=== PATIENT | female | born 1965 | race Caucasian/White ===

== ENCOUNTER 2017-11-14 12:39 | Emergency (ER) | payer BC ==
[~2017-11-14] VITALS: Ht 152.4 cm; Wt 54.5 kg
[2017-11-14 12:40] VITALS: BP 151/80; PULSE 100; RESP 20; TEMP 98.7; O2SAT 95
--- NOTE | 2017-11-14 15:18 | RADRPT ---
EXAM DATE/TIME: 11/14/2017 14:59 [facility] COMPARISON: No previous studies available for comparison. INDICATIONS : Pain without acute trauma. MEDICAL HISTORY : Prior dislocation. SURGICAL HISTORY : Hip pinning, left. ENCOUNTER: Initial ACUITY: 2 days PAIN SCORE: 5/10 LOCATION: Left hip. FINDINGS: 2 views of the left hip reveal 2 femoral neck screws traversing a prior subcapital femoral neck fract ure. Alignment noted. The screws are contained within the cortical confines of the femoral head. Mild osteoarthritis involving the hip joint. No acute fracture or dislocation. Soft tissues are unremarka ble. CONCLUSION: Old trauma with femoral neck screws. No acute abnormality observed. Luis Daniel Whitney Jr., MD on November 14, 2017 at 15:15 Board Certified Radiologist. This report was verified electronically.
[2017-11-14] MEDS ORDERED: HYDR-3516 PO (17:41)
--- NOTE | 2017-11-14 17:41 | PD ---
HPI Chief Complaint: Pain: Acute or Chronic Time Seen by Provider: 17:30 Travel History International Travel<30 days: No Contact w/Intl Traveler<30days: No Traveled to known affect area: No History of Present Illness HPI 52-year-old female with history of left hip ORIF secondary to a dislocation in 1975 in [place], here for evaluation of left hip pain. Patient reports that she began experiencing some discomfort in her left hip last night and it seemed to worsen today. She has not had any recent injuries. Pain is constant, moderate, worse with movement and ambulation, improved with rest. No fevers or chills. No history of DVT or PE. No chest pain or dyspnea. PFSH Social History Tobacco Use: Yes Allergies-Medications (Allergen,Severity, Reaction): Coded Allergies: No Known Allergies (Unverified , 11/14/17) Reported Meds & Prescriptions Reported Meds & Active Scripts Active Hydrocodone-Acetaminophen 5-325 mg Tab 1 Tab PO Q6H PRN Review of Systems Except as stated in HPI: all other systems reviewed are Neg Physical Exam Narrative GENERAL: Well-developed, well-nourished, comfortable, no apparent distress. Ambulated from triage to exam room without difficulty and without assistance. SKIN: Focused skin assessment warm/dry. No rash. HEAD: Atraumatic. Normocephalic. EYES: Pupils equal and round. No scleral icterus. No injection or drainage. ENT: No nasal bleeding or discharge. Mucous membranes pink and moist. NECK: Trachea midline. No JVD. CARDIOVASCULAR: Regular rate and rhythm. No murmur appreciated. RESPIRATORY: No accessory muscle use. Clear to auscultation. Breath sounds equal bilaterally. MUSCULOSKELETAL: No obvious deformities. No clubbing. No cyanosis. No edema. Left lateral hip with mild tenderness without deformity, without warmth and erythema, with normal range of motion. All compartments in the left lower chest , near supple. No midline vertebral step-off or tenderness. Left lower extremity is neurovascularly intact. NEUROLOGICAL: Awake and alert. No obvious cranial nerve deficits. Motor grossly within normal limits. Normal speech. PSYCHIATRIC: Appropriate mood and affect; insight and judgment normal. Data Data Last Documented VS Vital Signs Date Time Temp Pulse Resp B/P (MAP) Pulse Ox O2 Delivery O2 Flow Rate FiO2 11/14/17 17:50 95 18 145/75 (98) 97 Room Air 11/14/17 12:40 98.7 Orders Orders Hip, Uni(Ap&Lat) Wo Ap Pelvis (11/14/17 ) Acetamin-Hydrocod 325-5 Mg ([place] 5-325 (11/14/17 17:45) Ed Discharge Order (11/14/17 17:41) MDM Medical Decision Making Medical Screen Exam Complete: Yes Emergency Medical Condition: Yes Differential Diagnosis Acute on chronic left hip pain, left hip fracture, dislocation Narrative Course This is a 52-year-old female who had ORIF of the left hip in 1975 for left hip dislocation. She has normal range of motion in the left hip and there are no signs of infection. Left hip x-ray shows old injury with femoral necks is intact and in place, no acute trauma. Patient was made aware of this x-ray finding. At this point she is stable for discharge home with outpatient follow- up with an orthopedist this week. She was advised on when to return to the emergency department. She verbalizes understanding and agreement with plan. Diagnosis Primary Impression: Left hip pain Referrals: Rafiq Avila MD 3 days Orthopedist Primary Care Physician 3 days Additional Instructions: Follow-up with orthopedist Dr. Avila orthopedist of your choice this week. Follow-up with a primary care physician this week. Return to the emergency department for worsening symptoms or any other concerns. Scripts Hydrocodone-Acetaminophen (Hydrocodone-Acetaminophen) 5-325 mg Tab 1 TAB PO Q6H Y for PAIN, #12 TAB 0 Refills Prov: Al Lake MD 11/14/17 Disposition: 01 DISCHARGE HOME Condition: Stable Al Lake MD Nov 14, 2017 17:41
[2017-11-14] MEDS ORDERED: ACETAMINOPHEN/HYDROcodone 325 MG/5 MG TAB PO ONE (17:45)
[2017-11-14 17:50] VITALS: BP 145/75; PULSE 95; RESP 18; O2SAT 97
== END 2017-11-15 01:49 | disposition home or self-care (01) ==
LOC: NEPD 12:39
DX: M25.552 Pain in left hip (principal); Z72.0 Tobacco use
CPT/HCPCS: 73502; 99283